=== PATIENT | female | born 1990 | race Caucasian/White ===

== ENCOUNTER 2018-07-28 07:39 | Emergency (ER) | payer MEDICAID, OTHER ==
[~2018-07-28] VITALS: Ht 175.3 cm; Wt 86.2 kg
[2018-07-28 07:43] VITALS: BP 123/90
--- NOTE | 2018-07-28 07:47 | NUR ---
PT AMBULATES TO BED 9
--- NOTE | 2018-07-28 07:50 | NUR ---
PATIENT PRESENTS TO ED WITH sore throat times 3 days with swollen tonsils and white/ yellow exudate . PT STATES she currently has not pain she just feels like her tonsils are swollen. DENIES N/V/D; SKIN IS PINK/WARM/DRY; AAOX4 WITH EVEN AND STEADY GAIT; LUNGS CLEAR BL; HR EVEN AND REGULAR; PT DENIES ANY FEVER, CP, SOB, OR COUGH AT THIS TIME; VSS; PATIENT POSITIONED FOR COMFORT; HOB ELEVATED; BEDRAILS UP X2; BED DOWN. ER MD MADE AWARE OF PT STATUS.
--- NOTE | 2018-07-28 07:52 | NUR ---
Patient being evaluated by physician at bedside.
[2018-07-28] MEDS ORDERED: diphenhydrAMINE 50 MG CAP PO ONE (08:55)
[2018-07-28] MEDS ORDERED: IBUPROFEN 600 MG TAB PO ONE (08:55)
[2018-07-28] MEDS ORDERED: prednisoLONE 15 MG/5 ML UDC PO ONE (08:55)
[2018-07-28 09:08] VITALS: BP 123/90
--- NOTE | 2018-07-28 09:08 | NUR ---
Patient discharged with v/s stable. Written and verbal after care instructions given and explained. Patient alert, oriented and verbalized understanding of instructions. Ambulatory with to car. All questions addressed prior to discharge. ID band removed. Patient advised to follow up with PMD. Rx of PREDNISONE, AND AZITHROMYCIN given. Patient educated on indication of medication including possible reaction and side effects. Opportunity to ask questions provided and answered.
== END 2018-07-28 09:08 | disposition home or self-care (01) ==
LOC: MED 07:39
DX: J03.90 Acute tonsillitis, unspecified (principal); J02.9 Acute pharyngitis, unspecified; E11.9 Type 2 diabetes mellitus without complications
CPT/HCPCS: 99284; J7510; Q0163

== ENCOUNTER 2019-08-28 14:04 | Emergency (ER) | payer MEDICAID ==
[~2019-08-28] VITALS: Ht 175.3 cm; Wt 86.4 kg
[2019-08-28 14:09] VITALS: BP 128/70
[2019-08-28] MEDS ORDERED: BACITRACIN OINT 500 UNITS/GM PKT TP ONE (14:55)
[2019-08-28 15:50] VITALS: BP 120/70
--- NOTE | 2019-08-28 15:52 | NUR ---
Patient discharged with v/s stable. Written and verbal after care instructions given and explained. Patient verbalized understanding. Ambulatory with steady gait. All questions addressed prior to discharge. Advised to follow up with PMD.
== END 2019-08-28 15:52 | disposition home or self-care (01) ==
LOC: MED 14:04
DX: S61.254A Open bite of right ring finger without damage to nail, initial encounter (principal); W55.01XA Bitten by cat, initial encounter; Y93.89 Activity, other specified; Y92.86 Slaughter house as the place of occurrence of the external cause; Y99.8 Other external cause status
CPT/HCPCS: 81002; 99283; 99284

== ENCOUNTER 2019-12-06 16:21 | Emergency (ER) | payer MEDICAID ==
[~2019-12-06] VITALS: Ht 175.3 cm; Wt 86.2 kg
--- NOTE | 2019-12-06 16:30 | NUR ---
URINE CUP HANDED TO PT FOR SAMPLE
[2019-12-06] MEDS ORDERED: NACL 0.9% 1,000 ML IV ONE (16:40)
--- NOTE | 2019-12-06 16:47 | NUR ---
US AT BEDSIDE
--- NOTE | 2019-12-06 17:00 | NUR ---
29 Y/O F C/C LOW AMIOTIC FLUID. PER PT REFERRED TO ER BY PCP TO GET EVALUATION. PT CURRENTLY 18 WEEKS , DENIES VAGINAL DISCHARGE. NO PAIN. PER PT NO HX. NO RX. NO N/V/D. SIDE RAIL X1.
[2019-12-06 17:48] LABS: BASOPHILS % (AUTO) 0.2 % (0.0-2.0); EOSINOPHILS # (AUTO) 0.1 K/uL (0-0.4); EOSINOPHILS % (AUTO) 1.3 % (0.0-4.0); HEMOGLOBIN 13.7 g/dL (12.0-16.0); LYMPHOCYTES # (AUTO) 1.5 K/uL (2.5-16.5); LYMPHOCYTES % (AUTO) 15.3 % (20.5-51.1); MEAN CORPUSCULAR HEMOGLOBIN 32 pg (27-31); MEAN CORPUSCULAR HGB CONC 34 g/dL (33-37); MEAN CORPUSCULAR VOLUME 92.4 fL (80-94); MONOCYTES # (AUTO) 0.5 K/uL (0.8-1.0); MONOCYTES % (AUTO) 5.5 % (1.7-9.3); NEUTROPHILS # (AUTO) 7.6 K/uL (1.8-7.7); NEUTROPHILS % (AUTO) 77.7 % (42.2-75.2); PLATELET COUNT (AUTO) 247 K/uL (140-450); RED BLOOD CELL COUNT(AUTO) 4.33 MIL/uL (4.20-5.40); RED CELL DISTRIBUTION WIDTH 13.5 % (11.6-13.7); WHITE BLOOD COUNT (AUTO) 9.8 K/uL (4.8-10.8)
[2019-12-06 17:55] LABS: APPEARANCE,URINE CLEAR (CLEAR); BILIRUBIN,URINE NEGATIVE (NEGATIVE); BLOOD, URINE NEGATIVE (NEGATIVE); COLOR,URINE YELLOW (YELLOW); LEUKOCYTE ESTERASE ,URINE NEGATIVE (NEGATIVE); NITRITE, URINE NEGATIVE (NEGATIVE); UGLUCOSE NEGATIVE (NEGATIVE)
[2019-12-06 18:08] LABS: ANION GAP 17.1 (8-16); CARBON DIOXIDE 24.1 mmol/L (21-32); CREATININE 0.7 mg/dL (0.6-1.3); POTASSIUM 3.2 mmol/L (3.5-5.1)
[2019-12-06] MEDS ORDERED: POTASSIUM CHLORIDE 10 MEQ TABER PO ONE (18:20)
[2019-12-06 18:51] VITALS: BP 110/78
== END 2019-12-06 18:51 | disposition home or self-care (01) ==
LOC: MED 16:21
DX: O99.342 Other mental disorders complicating pregnancy, second trimester (principal); O26.892 Other specified pregnancy related conditions, second trimester; E86.0 Dehydration; E87.6 Hypokalemia; Z3A.17 17 weeks gestation of pregnancy
CPT/HCPCS: 36415; 76805; 80053; 81003; 84702; 85025; 86900; 86901; 99284; J7030; Q0092

== ENCOUNTER 2021-08-02 06:55 | Observation (INO) | payer MEDICAID, SELFPAY ==
[~2021-08-02] VITALS: Ht 175.3 cm; Wt 91.6 kg
[2021-08-02] MEDS ORDERED: PRETAB PO (07:29)
[2021-08-02 07:58] VITALS: BP 110/69
[2021-08-02 08:07] LABS: APPEARANCE,URINE HAZY (CLEAR); BILIRUBIN,URINE 2+ (NEGATIVE); BLOOD, URINE 3+ (NEGATIVE); COLOR,URINE ORANGE (YELLOW); LEUKOCYTE ESTERASE ,URINE TRACE (NEGATIVE); NITRITE, URINE NEGATIVE (NEGATIVE); UGLUCOSE NEGATIVE (NEGATIVE)
[2021-08-02 08:19] LABS: RBC,URINE 50-80 /HPF (0-5); WBC,URINE 0-5 /HPF (0-5)
[2021-08-02 08:20] LABS: CALCIUM OXALATE CRYSTALS,UR 1+ /HPF (None Seen)
--- NOTE | 2021-08-02 08:34 | NUR ---
PATIENT HAS BEEN SCREENED AND CATEGORIZED LOW NUTRITION RISK. PATIENT WILL BE SEEN WITHIN 7 DAYS OF ADMISSION. 08/08/[address]
[2021-08-02] MEDS ORDERED: NACL 0.9% 1,000 ML IV SCH ×2 (08:45→10:35)
--- NOTE | 2021-08-02 08:53 | NUR ---
PATIENT HAS BEEN SCREENED AND CATEGORIZED LOW NUTRITION RISK. PATIENT WILL BE SEEN WITHIN 7 DAYS OF ADMISSION. 08/08/[address]
[2021-08-02 09:33] LABS: EOSINOPHILS % (AUTO) 0.1 % (0.0-4.0); HEMATOCRIT 37.1 % (36-48); LYMPHOCYTES # (AUTO) 0.9 K/uL (2.5-16.5); LYMPHOCYTES % (AUTO) 14.2 % (20.5-51.1); MEAN CORPUSCULAR HEMOGLOBIN 31 pg (27-31); MEAN CORPUSCULAR HGB CONC 35 g/dL (33-37); MEAN CORPUSCULAR VOLUME 89.1 fL (80-94); MONOCYTES # (AUTO) 0.6 K/uL (0.8-1.0); MONOCYTES % (AUTO) 9.7 % (1.7-9.3); NEUTROPHILS # (AUTO) 4.8 K/uL (1.8-7.7); PLATELET COUNT (AUTO) 290 K/uL (140-450); RED BLOOD CELL COUNT(AUTO) 4.16 MIL/uL (4.20-5.40); RED CELL DISTRIBUTION WIDTH 13.9 % (11.6-13.7); WHITE BLOOD COUNT (AUTO) 6.4 K/uL (4.8-10.8)
[2021-08-02 09:46] LABS: ALBUMIN 2.5 g/dL (3.4-5.0); ANION GAP 13.6 (8-16); CARBON DIOXIDE 23.4 mmol/L (21-32); CREATININE 0.6 mg/dL (0.6-1.3); TOTAL BILIRUBIN 0.7 mg/dL (0.0-1.0)
[2021-08-02] MEDS ORDERED: POTASSIUM CHLORIDE 10 MEQ TABER PO SCH (12:15)
== END 2021-08-02 17:05 | disposition home or self-care (01) ==
LOC: MLD 06:55
PROVIDERS: ADMIT Obstetrics & Gynecology; ATTEND Obstetrics & Gynecology
DX: O23.02 Infections of kidney in pregnancy, second trimester (principal); Z20.822 Contact with and (suspected) exposure to COVID-19; O26.832 Pregnancy related renal disease, second trimester; N20.0 Calculus of kidney; O23.42 Unspecified infection of urinary tract in pregnancy, second trimester; O99.282 Endocrine, nutritional and metabolic diseases complicating pregnancy, second trimester; E87.6 Hypokalemia; Z3A.23 23 weeks gestation of pregnancy
CPT/HCPCS: 36415; 59025; 76770; 76805; 80053; 81001; 84132; 85025; 87426; 96361; 96365; G0378; J0696; J7060; Q0092